=== PATIENT | female | born 1965 | race Caucasian/White ===

== ENCOUNTER → 2017-10-01 | Emergency (ER) | payer OTHER ==
[~2017-10-01] VITALS: Ht 154.9 cm; Wt 113.4 kg
[~2017-10-01] MED LIST: CARDURA XL4 MG; CATAPRES0.2 MG; CLONAZEPAM2 M1; COZAAR100 MG; DURAGESIC1 EAC1; GABAPENTIN800 MG; NEXIUM40 M1; PNEU16DI2; PROAIR HFA8.5 GM; TENORMIN50 M1; VISTARIL50 MG
== END | disposition home or self-care (01) ==
LOC: ER 22:14
DX: K62.3 Rectal prolapse (principal)

== ENCOUNTER 2017-12-26 19:13 | Inpatient (IN) | payer OTHER ==
[~2017-12-26] VITALS: Ht 157.5 cm; Wt 104.3 kg
[2018-01-03] MEDS ORDERED: SERTRALINE HCL50 MG PO (15:17)
[2018-01-03] MEDS ORDERED: GABAPENTIN800 MG PO (15:17)
[2018-01-03] MEDS ORDERED: INTESTINEX680 M1 PO (15:18)
[2018-01-03] MEDS ORDERED: DOXAZOSIN MESYLA4 MG PO (15:18)
[2018-01-03] MEDS ORDERED: INTEGRA PLUS C1 EACH PO (15:19)
[2018-01-03] MEDS ORDERED: ZANTAC150 MG PO (15:19)
[2018-01-03] MEDS ORDERED: NEXIUM 24HR20 M1 PO (15:19)
[2018-01-03] MEDS ORDERED: BALANCE B-1001 EACH PO (15:20)
== END 2018-01-03 18:48 | disposition home or self-care (01) | DRG 673 ==
LOC: ER 19:13 → MEDI 12-27 00:28
PROC: B246ZZZ Ultrasonography of Right and Left Heart (ICD-10-PCS; 2017-12-27)
PROC: 0JB90ZZ Excision of Buttock Subcutaneous Tissue and Fascia, Open Approach (ICD-10-PCS; principal; 2018-01-02)
DX: N17.8 Other acute kidney failure (principal); A41.9 Sepsis, unspecified organism; R65.20 Severe sepsis without septic shock; N39.0 Urinary tract infection, site not specified; E87.1 Hypo-osmolality and hyponatremia; I50.30 Unspecified diastolic (congestive) heart failure; E03.8 Other specified hypothyroidism; M79.7 Fibromyalgia; B96.29 Other Escherichia coli [E. coli] as the cause of diseases classified elsewhere; K62.3 Rectal prolapse; I35.0 Nonrheumatic aortic (valve) stenosis; I11.0 Hypertensive heart disease with heart failure; L89.312 Pressure ulcer of right buttock, stage 2; F41.8 Other specified anxiety disorders; E86.0 Dehydration; Z74.01 Bed confinement status; L89.611 Pressure ulcer of right heel, stage 1